=== PATIENT | female | born 1950 | race Caucasian/White ===

== ENCOUNTER → 2016-12-11 | Outpatient (CLI) | payer MEDICARE, OTHER ==
[~2016-12-11] MED LIST: CICL34.6 TP; DICY10CA3 PO; LANS30CA PO; LOSA1TAB18 PO
--- NOTE | 2016-12-22 15:31 | RAD ---
Calcaneus, 2 views, 12/11/2016: History: Foot pain, plantar fasciitis No fracture or destructive bony lesion is seen. There is a tiny inferior calcaneal spur. There is mild tendinous calcification at the Achilles tendon insertion site upon the calcaneus. There is moderate subcutaneous edema along the plantar aspect of the heel. IMPRESSION: No acute bony abnormality is detected. MTDD
== END | disposition home or self-care (01) ==
LOC: FMSRAD 16:21
PROVIDERS: ATTEND Internal Medicine
DX: M72.2 Plantar fascial fibromatosis (principal)
CPT/HCPCS: 73650

== ENCOUNTER → 2017-03-16 | Outpatient (CLI) | payer MEDICARE, OTHER ==
--- NOTE | 2017-03-16 13:32 | RAD ---
DATE: 03/16/2017 EXAM: DIGITAL DIAGNOSTIC BILATERAL, BREAST RIGHT HISTORY: Diagnostic mammogram for palpable right breast lump per patient. History of right-sided breast cancer status post lumpectomy and radiation treatment. COMPARISON: Mammogram 03/12/2016, 09/09/2015, 02/19/2015, 02/06/2014, 03/18/2012, and 03/02/2011 This study was interpreted with the benefit of Computerized Aided Detection (CAD). The breast parenchyma shows scattered fibroglandular densities. Breast parenchyma level B. FINDINGS: Right breast: CC and MLO views of the right breast were performed. Additional views including spot magnification CC view, spot magnification MLO and ML views of the right breast. Targeted right breast ultrasound was performed. Scattered diffuse round calcifications as well as vascular calcifications are identified in the right breast. No suspicious microcalcifications are identified. No masses are present. Lumpectomy changes are identified in the superior right breast. No suspicious areas of architectural distortion. Targeted sonographic evaluation at at 1:30, 7 cm from the nipple was performed at the site of patient's palpable abnormality. Dislocation as above the level of the patient's lumpectomy scar. Normal fibroglandular tissue is identified. No suspicious masses or areas of architectural distortion are identified. Please note a negative mammogram and ultrasound do not preclude the need for additional imaging should the patient's symptoms change Left breast: CC and MLO views of the left breast were performed. No suspicious macrocalcifications, masses or areas of architectural distortion are identified. IMPRESSION: 1. Right breast: Benign findings. Please note a negative mammogram and ultrasound do not preclude the need for additional imaging should the patient's symptoms change. 2. Left breast: Normal left mammogram. BI-RADS CATEGORY: 2 BENIGN FINDING(S) RECOMMENDED FOLLOW-UP: 12M 12 MONTH FOLLOW-UP PQRS compliance statement: Patient information was entered into a reminder system with a target due date 03/16/2018 for the next mammogram. Mammography is a sensitive method for finding small breast cancers, but it does not detect them all and is not a substitute for careful clinical examination. A negative mammogram does not negate a clinically suspicious finding and should not result in delay in biopsying a clinically suspicious abnormality. "Our facility is accredited by the [employer] Mammography [employer]."
== END | disposition home or self-care (01) ==
LOC: MAMMO 11:53
PROVIDERS: ATTEND Internal Medicine
DX: N63 Unspecified lump in breast (principal); Z85.3 Personal history of malignant neoplasm of breast
CPT/HCPCS: 76641; G0204; 77066

== ENCOUNTER → 2017-12-21 | Outpatient (CLI) | payer MEDICARE, OTHER | END | disposition home or self-care (01) | LOC: US 08:23 | DX: K76.0 Fatty (change of) liver, not elsewhere classified (principal) | CPT/HCPCS: 76700 ==

== ENCOUNTER → 2018-04-14 | Outpatient (CLI) | payer MEDICARE, OTHER | END | disposition home or self-care (01) | LOC: MAMMO 09:37 | DX: Z12.31 Encounter for screening mammogram for malignant neoplasm of breast (principal); Z85.3 Personal history of malignant neoplasm of breast | CPT/HCPCS: 77063; 77067 ==